=== PATIENT | male | born 2000 ===

== ENCOUNTER 2020-12-22 01:30 | Emergency (ER) | payer OTHER, SELFPAY ==
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
--- NOTE | 2020-12-22 03:03 | PC.NURSE ---
Pt's clothing taken by [facility] Coronalireza Malagon.
--- NOTE | 2020-12-22 03:14 | PC.NURSE ---
Favian montes 0311. Spoke with [facility] and they stated he is a candidate for donation. They will reach out to family in the morning and call back with an update.
--- NOTE | 2020-12-23 05:18 | PC.NURSE ---
k00:05 Released by [facility]. Message left at [facility]. 05:15 Contacted [facility]. Aware of family request for their services.
== END 2020-12-22 03:28 | disposition expired ==
PROVIDERS: Emergency Provider Emergency Medicine
DX: S11.93XA Puncture wound without foreign body of unspecified part of neck, initial encounter (principal); I46.8 Cardiac arrest due to other underlying condition
CPT/HCPCS: 92950; 99285